=== PATIENT | female | born 1965 | race Caucasian/White ===

== ENCOUNTER 2016-08-13 14:59 | Emergency (ER) | payer MEDICAID ==
[2016-08-13 15:10] VITALS: BMI 41.5
[2016-08-13 15:11] VITALS: BP 122/86; RESP 18; TEMP 98.5
--- NOTE | 2016-08-13 16:01 | C.PDOC ---
History Of Present Illness 50 yo female come in for evaluation of Right sided flank pain intermittent for past few weeks. Pt also complaining of Right knee pain for past few days. Pt reports, pains are localized and worse with movement and ambulation. Otherwise, pt denies known trauma or injury, fever, chills, recent illness, abd. pain, N/V , UTI sx, saddle anesthesia, incontinence, denies weakness, sensory or vascular deficits to B/L LEs. Ambulate to ED for evaluation, not in any apparent distress. Time Seen by Provider: 08/13/16 15:16 Chief Complaint (Nursing): Lower Extremity Problem/Injury History Per: Patient History/Exam Limitations: no limitations Onset/Duration Of Symptoms: Other (Few weeks ) Past Medical History Reviewed: Historical Data, Nursing Documentation, Vital Signs Vital Signs: Last Vital Signs Temp 98.5 F 08/13/16 15:10 Pulse 100 H 08/13/16 15:10 Resp 18 08/13/16 15:10 BP 122/86 08/13/16 15:10 Pulse Ox 96 08/13/16 16:56 - Medical History PMH: Depression Family History: States: No Known Family Hx - Social History Hx Tobacco Use: No Hx Alcohol Use: No Hx Substance Use: No - Immunization History Hx Tetanus Toxoid Vaccination: Yes Hx Influenza Vaccination: Yes Hx Pneumococcal Vaccination: Yes Review Of Systems Except As Marked, All Systems Reviewed And Found Negative. Constitutional: Negative for: Fever, Chills Gastrointestinal: Negative for: Nausea, Vomiting, Abdominal Pain Genitourinary: Negative for: Incontinence Musculoskeletal: Positive for: Back Pain (Right sided flank pain ), Other ((+) Right knee pain (-) No saddle anesthesia. ) Neurological: Negative for: Weakness, Numbness Physical Exam - Physical Exam Appears: Well, Non-toxic, No Acute Distress Skin: Normal Color, Warm, No Rash Eye(s): bilateral: PERRL Nose: No Discharge Oral Mucosa: Moist Throat: No Erythema, No Exudate Neck: Supple Back: No CVA Tenderness, No Vertebral Tenderness, Other (Right flank tenderness. No skin changes.) Extremity: Normal ROM (Right knee), Tenderness (diffuse Right anterior knee tenderness. no edema, no erythema or warmth. FAROM of Right knee, no neurovascular deficist distally.), No Pedal Edema, No Calf Tenderness, No Deformity Neurological/Psych: Oriented x3, Normal Speech, Normal Motor, Normal Sensation, Normal Reflexes ED Course And Treatment O2 Sat by Pulse Oximetry: 96 Pulse Ox Interpretation: Normal - Other Rad X-Ray - Right Knee X-Ray: Interpreted by Me, Viewed By Me, Read By Radiologist Interpretation: PROCEDURE: Right Knee Radiographs. HISTORY: pain. COMPARISON : None. FINDINGS: BONES: Normal. No fracture. JOINTS: Normal. No osteoarthritis. JOINT EFFUSION: None. OTHER FINDINGS: None. IMPRESSION: Normal radiographs of the right knee. X-Ray - LS Spine X-Ray: Interpreted by Me, Viewed By Me, Read By Radiologist Interpretation: COMPARISON: No prior. FINDINGS: BONES: Vertebral bodies are maintained in height. There is mild dextroscoliosis. The transverse processes and posterior elements are intact. There is no listhesis. DISC SPACES: Lumbar intervertebral disc spaces are maintained in height. There is degenerative disc disease noted in the lower thoracic spine. OTHER FINDINGS: None. IMPRESSION: No fracture or dislocation. Degenerative disc disease noted in lower thoracic spine. Mild dextroscoliosis. Progress Note: On re-eavl, pt is afebrile, hemodynamicaly stable. Non-toxic. ENT: no acute findings. neck: (-) meningeal sign. Abd: benign, (-) guarding, ( -) rebound. back:L (-) CVA tenderness. UA results review and appears noraml. Xray of L-spine and Right knee review and no acute findings noted. Pt has clinical findings c/w Right knee arthralgia nd Right flank pain. Pt advised. ref. to F/u with PMD and Ortho in 2-3 days for re-eval. return if any new changes. Medical Decision Making Medical Decision Making: PLAN: * X-Ray - Right Knee, LS Spine * HCG * Urinalysis Disposition Counseled Patient/Family Regarding: Studies Performed, Diagnosis, Need For Followup, Rx Given - Disposition Referrals: [facility] [Outside] Disposition: HOME/ ROUTINE Disposition Time: 16:51 Condition: STABLE Additional Instructions: Avoid physical activity for 1week Light duty to Right knee Zachary wrap to Right knee take medication for pain as need Follow up with PMD and orthopedist in 2-3 days for re-evaluation. Return to ED if any worsening or new changes. Prescriptions: Methocarbamol [Robaxin] 500 mg PO TID #14 tab traMADol [Ultram] 50 mg PO TID #7 tab Instructions: Knee Pain (ED), Flank Pain (ED) Print Language: GUAMANIAN - Clinical Impression Clinical Impression: Flank pain, Arthralgia of knee - PA / INFORMATICS NURSE SPECIALIST / Resident Statement MD/DO has reviewed & agrees with the documentation as recorded. - Scribe Statement The provider has reviewed the documentation as recorded by the Scribe Lucy Bautista All medical record entries made by the Zoe were at my direction and personally dictated by me. I have reviewed the chart and agree that the record accurately reflects my personal performance of the history, physical exam, medical decision making, and the department course for this patient. I have also personally directed, reviewed, and agree with the discharge instructions and disposition.
[2016-08-13 16:41] LABS: RBC URINE 1 /hpf (0-3); URINE BACTERIA OCC (<OCC); URINE BILIRUBIN NEGATIVE (NEGATIVE); URINE BLOOD NEGATIVE (NEGATIVE); URINE COLOR Yellow (YELLOW); URINE GLUCOSE (UA) NORMAL (Normal); URINE KETONE 1+ mg/dL (NEGATIVE); URINE LEUKOCYTE ESTERASE NEG Leu/uL (Negative); URINE PROTEIN NEGATIVE (NEGATIVE); URINE UROBILINOGEN NORMAL mg/dL (0.2-1.0); WBC URINE 1 /hpf (0-5)
--- NOTE | 2016-08-13 16:46 | RAD ---
PROCEDURE: Right Knee Radiographs. HISTORY: pain COMPARISON: None. FINDINGS: BONES: Normal. No fracture. JOINTS: Normal. No osteoarthritis. JOINT EFFUSION: None. OTHER FINDINGS: None. IMPRESSION: Normal radiographs of the right knee.
--- NOTE | 2016-08-13 16:47 | RAD ---
PROCEDURE: Radiographs of the Lumbar Spine. HISTORY: injury COMPARISON: No prior. FINDINGS: BONES: Vertebral bodies are maintained in height. There is mild dextroscoliosis. The transverse processes and posterior elements are intact. There is no listhesis. DISC SPACES: Lumbar intervertebral disc spaces are maintained in height. There is degenerative disc disease noted in the lower thoracic spine. OTHER FINDINGS: None. IMPRESSION: No fracture or dislocation. Degenerative disc disease noted in lower thoracic spine. Mild dextroscoliosis.
[2016-08-13 17:09] VITALS: PULSE 98; O2SAT 97
== END 2016-08-13 17:08 | disposition home or self-care (01) ==
LOC: C.ER 14:59
DX: M25.561 Pain in right knee (principal); M54.89 Other dorsalgia

== ENCOUNTER 2017-02-22 08:28 | Emergency (ER) | payer MEDICAID, OTHER ==
[2017-02-22 08:35] VITALS: BMI 42.7
[2017-02-22 08:38] VITALS: O2SAT 96
[2017-02-22] MEDS ORDERED: Sodium Chloride 0.9% 1,000 ML IV ONE (09:14)
[2017-02-22] MEDS ORDERED: Promethazine/Cod 6.25mg-10mg/5ml Syr UD PO STA (09:19)
[2017-02-22] MEDS ORDERED: Albuterol 0.083% Inhal Sol (2.5 mg/3 mL) UD IH STA (09:19)
[2017-02-22 09:31] LABS: BASO % 0.3 % (0.0-2.0); EOS % 0.6 % (0.0-4.0); HEMATOCRIT 36.8 % (34.0-47.0); LYMPH # 1.2 K/uL (1.0-4.3); LYMPH % 17.4 % (20.0-40.0); MEAN CELL VOLUME 89.2 fL (81.0-99.0); MEAN CORPUSCULAR HEMOGLOBIN 30.1 pg (27.0-31.0); MEAN CORPUSCULAR HGB CONC 33.7 g/dL (33.0-37.0); MEAN PLATELET VOLUME 8.1 fL (7.2-11.7); MONO # 0.5 K/uL (0.0-0.8); NRBC % 0.6 % (0.0-2.0); RED CELL DISTRIBUTION WIDTH 12.6 % (11.5-14.5); WHITE BLOOD COUNT 6.7 K/uL (4.8-10.8)
[2017-02-22] MEDS ORDERED: Albuterol 0.083% Inhal Sol (2.5 mg/3 mL) UD ONE (09:31)
[2017-02-22] MEDS ORDERED: Sodium Chloride 0.9% 1,000 ML ONE (09:31)
[2017-02-22] MEDS ORDERED: Promethazine DM 6.25 mg-15 mg/5 ml Syrup ONE (09:31)
[2017-02-22 09:43] LABS: BLOOD UREA NITROGEN 17 mg/dL (7-17); CALCIUM 8.5 mg/dl (8.6-10.4); CARBON DIOXIDE 29 mmol/L (22-30); CHLORIDE 100 mmol/L (98-107); GFR AFRICAN-AMERICAN > 60; GLUCOSE,RANDOM 187 mg/dL (65-105); SODIUM 139 mmol/L (132-148)
[2017-02-22 10:00] LABS: URINE BILIRUBIN NEGATIVE (NEGATIVE); URINE BLOOD NEGATIVE (NEGATIVE); URINE COLOR Yellow (YELLOW); URINE GLUCOSE (UA) 3+ mg/dL (Normal); URINE KETONE NEGATIVE (NEGATIVE); URINE LEUKOCYTE ESTERASE NEG Leu/uL (Negative); URINE PROTEIN NEGATIVE (NEGATIVE); URINE UROBILINOGEN NORMAL mg/dL (0.2-1.0)
--- NOTE | 2017-02-22 10:34 | C.PDOC ---
History Of Present Illness 51 yo female w/PMHx of NIDDM, morbidity come in for valuation of cold sx for past 4-5 days. Pt describes as bodyaches, chills, nasal congestion and dry cough that worsen for past few days. As per pt, was unable to sleep last night due to cough. Pt also reports, Right knee pain, localized, aching, intermittent worse with weight bearing. Otherwise, pt denies fever, headache, dizziness, neck pain, rash, drooling, dysphagia, dyspnea, SOB, wheezing, abd. pain, V/D, UTI sx, denies known trauma or injury to RIght knee. Ambulate to ED for evaluation, occasional cough noted. Time Seen by Provider: 02/22/17 08:39 Chief Complaint (Nursing): Cough, Cold, Congestion History Per: Patient History/Exam Limitations: no limitations Onset/Duration Of Symptoms: Days (4-5 days), Intermittent Episodes Location Of Pain: Diffuse Myalgias Sick Contacts (Context): None Associated Symptoms: Chills, Cough, Myalgias, Nasal Congestion. denies: Fever, Vomiting, Diarrhea Recent travel outside of the [place]: No Past Medical History Reviewed: Historical Data, Nursing Documentation, Vital Signs Vital Signs: Last Vital Signs Temp 98.0 F 02/22/17 11:11 Pulse 107 H 02/22/17 11:11 Resp 18 02/22/17 11:11 BP 120/74 02/22/17 11:11 Pulse Ox 96 02/22/17 11:40 - Medical History PMH: Depression Family History: States: Unknown Family Hx - Social History Hx Tobacco Use: No Hx Alcohol Use: No Hx Substance Use: No - Immunization History Hx Tetanus Toxoid Vaccination: Yes Hx Influenza Vaccination: Yes Hx Pneumococcal Vaccination: Yes Review Of Systems Constitutional: Positive for: Chills, Other (generalized bodyaches ). Negative for: Fever ENT: Positive for: Nose Congestion Cardiovascular: Negative for: Chest Pain, Palpitations Respiratory: Positive for: Cough (dry cough). Negative for: Shortness of Breath Gastrointestinal: Negative for: Nausea, Vomiting, Abdominal Pain, Diarrhea Genitourinary: Negative for: Dysuria, Frequency Musculoskeletal: Positive for: Other (right knee pain) Skin: Negative for: Rash Physical Exam - Physical Exam Appears: Well, Non-toxic, No Acute Distress Skin: Normal Color, Warm, Dry, No Rash Head: Normacephalic Eye(s): bilateral: PERRL Ear(s): Bilateral: Normal Nose: No Flaring, Discharge (B/L nasal congestion with scant clear rhinorrhea) Oral Mucosa: Moist, No Drooling Tongue: Normal Appearing Lips: Normal Appearing Throat: No Erythema, No Exudate, No Drooling Neck: Trachea Midline, Supple, Other ((-) meningeal sign) Cardiovascular: Rhythm Regular Respiratory: No Decreased Breath Sounds, No Accessory Muscle Use, No Rhonchi, No Stridor, No Wheezing Gastrointestinal/Abdominal: Soft, No Tenderness, No Distention, No Guarding Back: No CVA Tenderness Extremity: Normal ROM, Tenderness (mild over anterior aspect Right knee), No Calf Tenderness (B/L), No Deformity, No Swelling Neurological/Psych: Oriented x3, Normal Speech, Normal Motor, Normal Sensation, Normal Reflexes ED Course And Treatment - Laboratory Results Result Diagrams: 02/22/17 09:28 02/22/17 09:28 Lab Interpretation: No Acute Changes ECG: Interpreted By Me, Viewed By Me (and ED attending) Interpretation Of ECG: SR@104/min, NAD, no acute T wave or ST-T changes. O2 Sat by Pulse Oximetry: 96 (RA) Pulse Ox Interpretation: Normal - Radiology CXR: Interpreted by Me, Viewed By Me CXR Interpretation: Yes: No Acute Disease Progress Note: EKG and left knee X-Ray were ordered. Patient was given Zithromax , Albuterol, Medrol, phenergan/ codeine syrup, and IV fluids were given. On re- evaluation, pt reports mild improvement in sx. Afebrile, hemodynamicaly stable. NOn-toxic. PusleOx 96% RA. ENT: no acute findings. Neck: SUpple, (- ) meningeal sign. Lungs: CTA B/L, BS equal B/L. CVS: (+)S1S2, reg. Abd: Benign. Back: (-) CVA tenderness. Extr: no edema, mild tenderness over Right knee. FAROM, no neurovascular deficits, no skin changes. Blood work review and appears normal. UA- normal study, (-) ketones. XR, EKG- normal study. Pt has clinical finidngs c/w bronchitis, hx of DM. Pt advised on course of ds. ref. to F/u with PMD in 2-3 days for re-eval. return to ED if any worsening or new changes. Disposition Counseled Patient/Family Regarding: Studies Performed, Diagnosis, Need For Followup, Rx Given - Disposition Referrals: [facility] [Outside] Disposition: HOME/ ROUTINE Disposition Time: 10:37 Condition: STABLE Additional Instructions: ENCOURAGE FLUIDS TAKE MEDICATION PRESCRIBED FOLLOW UP WITH PMD IN 2-3 DAYS FOR RE-EVALUATION. RETURN TO ED IF ANY WORSENING OR NEW CHANGES. Prescriptions: Albuterol HFA [Ventolin HFA 90 mcg/actuation (8 g)] 1 puff IH Q6 #1 inhaler Azithromycin [Zithromax] 250 mg PO DAILY #4 tab Prednisone [Deltasone] 40 mg PO DAILY #6 tablet Promethazine/Codeine [Phenergan/Codeine Oral Syrup] 10 ml PO Q6 #90 ml Instructions: Acute Bronchitis (ED), Knee Pain (ED), Arthralgia (ED) Forms: [employer] (Mohawk), Work Excuse Print Language: NORTH KOREAN - Clinical Impression Clinical Impression: Bronchitis, Arthralgia of knee - PA / DIGITAL PROGRAM MANAGER / Resident Statement MD/DO has reviewed & agrees with the documentation as recorded. - Scribe Statement The provider has reviewed the documentation as recorded by the Scribrowan Dong All medical record entries made by the Zoe were at my direction and personally dictated by me. I have reviewed the chart and agree that the record accurately reflects my personal performance of the history, physical exam, medical decision making, and the department course for this patient. I have also personally directed, reviewed, and agree with the discharge instructions and disposition.
--- NOTE | 2017-02-22 10:45 | RAD ---
HISTORY: COMPARISON: 02/27/2012. TECHNIQUE: Chest PA and lateral FINDINGS: LINES AND TUBES: None. LUNG AND PLEURA: The lungs are well inflated and clear. HEART AND MEDIASTINUM: The heart is not enlarged. The hilar and mediastinal contours are within normal limits. SKELETAL STRUCTURES: The bony structures are within normal limits for the patient's age. VISUALIZED UPPER ABDOMEN: Normal. OTHER FINDINGS: None. IMPRESSION: No active pulmonary disease.
[2017-02-22 11:12] VITALS: BP 120/74; PULSE 107; RESP 18; TEMP 98
--- NOTE | 2017-02-22 11:51 | RAD ---
PROCEDURE: Right Knee Radiographs. HISTORY: COMPARISON: Right knee radiograph performed 08/13/16 FINDINGS: BONES: No acute displaced fracture. JOINTS: No dislocation. JOINT EFFUSION: No significant joint effusion. OTHER FINDINGS: None. IMPRESSION: No acute displaced fracture, dislocation, or significant joint effusion identified. If symptoms persist, or if there is continued clinical concern, x-ray follow-up in 7-10 days should be considered.
--- NOTE | 2017-02-22 19:12 | CARD ---
APPROVED REPORT EKG Measurement Heart [id number] <Conclusion> Sinus tachycardia Otherwise normal ECG
== END 2017-02-22 11:20 | disposition home or self-care (01) ==
LOC: C.ER 08:28
DX: J40 Bronchitis, not specified as acute or chronic (principal); M25.561 Pain in right knee; E11.9 Type 2 diabetes mellitus without complications
CPT/HCPCS: 71020; 73562; 80048; 81001; 85025; 87804; 93005; 94640; 96361; 96374; 99284; J2930; J7040

== ENCOUNTER 2018-02-12 14:00 | Emergency (ER) | payer MEDICAID, OTHER ==
[2018-02-12 14:00] VITALS: BMI 42.7
[2018-02-12 14:09] VITALS: TEMP 98.1
[2018-02-12] MEDS ORDERED: Naproxen 550 mg Tab PO STA (15:12)
--- NOTE | 2018-02-12 15:15 | C.PDOC ---
History Of Present Illness 52 y/o female pt with PMHx of diabetes presents to the ER complaining of frontal forehead pain for x 4 days. Pt took tylenol and advil with transient relief. Pt reports pain is pulsing, constant and is worse when leaning forward. She admits to "a lot" of congestion and a "cold" prior to these symptoms starting. Pt is compliant with her diabetes medications and checks her sugar levels regularly. Pt denies vision changes, eye pain, ear pain, chest pain, sob, dizziness, syncope , neck pain, subjective neurological changes or fever. Time Seen by Provider: 02/12/18 14:40 Chief Complaint (Nursing): Headache History Per: Patient, Dress Finisher (Geogoer) History/Exam Limitations: no limitations Onset/Duration Of Symptoms: Days (x4) Current Symptoms Are (Timing): Still Present Quality: Other (pulsing) Past Medical History Reviewed: Historical Data, Nursing Documentation, Vital Signs Vital Signs: Last Vital Signs Temp 98.1 F 02/12/18 14:07 Pulse 93 H 02/12/18 14:07 Resp 20 02/12/18 14:07 BP 104/68 02/12/18 14:07 Pulse Ox 95 02/12/18 14:07 - Medical History PMH: Depression, Diabetes Family History: States: Unknown Family Hx - Social History Hx Tobacco Use: No Hx Alcohol Use: No Hx Substance Use: No - Immunization History Hx Tetanus Toxoid Vaccination: Yes Hx Influenza Vaccination: Yes Hx Pneumococcal Vaccination: Yes Review Of Systems Constitutional: Negative for: Fever Eyes: Negative for: Vision Change ENT: Negative for: Ear Pain Neurological: Positive for: Headache (pulsing and constant ) Physical Exam - Physical Exam Appears: Well, Non-toxic, No Acute Distress Skin: Normal Color, Warm, Dry Head: Atraumatic, Normacephalic, Tenderness (frontal and malar sinuses on right side) Eye(s): bilateral: Normal Inspection, PERRL, EOMI Ear(s): Bilateral: Normal Nose: Normal Oral Mucosa: Moist Tongue: No Swelling Lips: No Swelling Throat: Normal, No Erythema, No Exudate Neck: Normal ROM, Supple Lymphatic: Normal Exam Chest: Symmetrical Cardiovascular: Rhythm Regular Respiratory: Normal Breath Sounds, No Accessory Muscle Use Extremity: Normal ROM Neurological/Psych: Oriented x3, Normal Speech, Normal Cognition, Normal Cranial Nerves (2-12 intact) ED Course And Treatment O2 Sat by Pulse Oximetry: 95 (RA) Pulse Ox Interpretation: Normal Progress Note: Impression: sinusitis. Plans: -- Naproxen. -- glucose POC. Reassess: On reassessment, patient is resting comfortably, is tolerating PO, and pain has improved. Patient has no neurologic deficit, photophobia, rash, fever, or nuchal rigidity. Patient was instructed to follow up with physician/clinic in 1-2 days. Disposition - Disposition Disposition: HOME/ ROUTINE Disposition Time: 15:28 Condition: GOOD Additional Instructions: Follow up with your doctor in 1-2 days. Return to ER if symptoms persist or w orsen. Drink plenty of fluids. Take tylenol or motrin for the pain. Sandra un seguimiento con vega mdico en 1-2 santos. Regrese a la shey de emergencias si los sntomas persisten o empeoran. Beber mucho lquido. Vicky tylenol o motrin para el dolor. Prescriptions: Amoxicillin/Clavulanate [Augmentin 875 MG-125 MG] 1 tab PO BID #14 tab Fluticasone Nasal [Flonase] 1 actuation NS DAILY #1 spr Naproxen Sodium/Pseudoephedrin [Aleve-D Sinus-Headache Caplet] 1 each PO Q12 #14 tab.er.12h Instructions: Sinusitis, Adult (DC) Forms: [employer] (Bulgarian) Print Language: DIVEHI - Clinical Impression Clinical Impression: Sinusitis - PA / RIG BUILDER HELPER / Resident Statement / has reviewed & agrees with the documentation as recorded. - Scribe Statement The provider has reviewed the documentation as recorded by the Zoe Carvalho Do All medical record entries made by the Zoe were at my direction and personally dictated by me. I have reviewed the chart and agree that the record accurately reflects my personal performance of the history, physical exam, medical decision making, and the department course for this patient. I have also personally directed, reviewed, and agree with the discharge instructions and disposition.
[2018-02-12] MEDS ORDERED: Naproxen 550 mg Tab PO ONE (15:18)
[2018-02-12 15:44] VITALS: BP 109/67; PULSE 88; RESP 18
[2018-02-12 18:35] VITALS: O2SAT 95
== END 2018-02-12 15:43 | disposition home or self-care (01) ==
LOC: C.ER 14:00
DX: J32.9 Chronic sinusitis, unspecified (principal)